=== PATIENT | male | born 2000 ===

== ENCOUNTER 2025-01-14 21:44 | Emergency (ER) | payer OTHER ==
[2025-01-14] MEDS: Bacitracin Oint 1 GM U/D Packet TOP ONE (22:05)
== END 2025-01-14 22:06 | disposition home or self-care (01) ==
LOC: DL.ED 21:44
DX: S61.216A Laceration without foreign body of right little finger without damage to nail, initial encounter (principal); W22.09XA Striking against other stationary object, initial encounter; Y99.0 Civilian activity done for income or pay
CPT/HCPCS: 99282; A9270